=== PATIENT | male | born 1960 | race Caucasian/White ===

== ENCOUNTER → 2018-07-30 | Outpatient (CLI) | payer MEDICARE, MEDICAID ==
--- NOTE | 2018-07-30 14:35 | REP ---
BILATERAL UPPER EXTREMITY DUPLEX DOPPLER ARTERIAL AND VENOUS ULTRASOUND FOR ARTERIOVENOUS FISTULA MAPPING: Real-time ultrasound evaluation and duplex Doppler interrogation of upper extremity arterial venous systems is performed bilaterally. 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 A catheter is noted in the right jugular vein. Right basilic vein measures 5 mm at the upper humerus, 6 mm at the mid humerus, 5 mm at the lower humerus, 1 mm in the upper forearm and 2 mm in the mid forearm and wrist. Median cubital vein measures 5 mm. Right cephalic vein measures 3 mm at the upper humerus level, 4 mm at the lower humerus, 2 mm in the upper forearm, 3 mm in the mid forearm and 2 mm at the wrist. Right upper extremity arterial structures demonstrate normal flow velocities with triphasic waveforms. Right axillary artery measures 7 mm, brachial artery 6 mm, radial artery 3 mm an ulnar artery 5 mm. 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 Left basilic vein measures 4 mm at the upper humerus and 2 mm at the lower humerus. Median cubital vein measures 2 mm. Left cephalic vein measures 1 mm at the upper humerus, 2 mm at the lower humerus and upper forearm. Left upper extremity arterial structures demonstrate normal flow velocities with triphasic waveforms. Left axillary artery measures 7 mm, brachial artery 4 mm, radial artery 3 mm and ulnar artery 4 mm. Electronically Signed by Naveen Johnson MD 08/01/2018 08:37 A
== END ==
LOC: M RAD 11:44
PROVIDERS: ATTEND Internal Medicine Nephrology
DX: Z01.818 Encounter for other preprocedural examination (principal); N18.6 End stage renal disease; R60.0 Localized edema; R09.89 Other specified symptoms and signs involving the circulatory and respiratory systems

== ENCOUNTER → 2018-08-01 | Outpatient (REF) | payer MEDICARE | LOC: M LAB REF 16:24 | PROVIDERS: ATTEND Physician Assistant | DX: J02.9 Acute pharyngitis, unspecified (principal) ==